=== PATIENT | male | born 1975 | race Caucasian/White ===

== ENCOUNTER 2017-04-02 21:59 | Emergency (ER) | payer OTHER ==
--- NOTE | 2017-04-02 22:39 | ED Physician Documentation ---
PD HPI ABD PAIN - Stated complaint Stated Complaint: LT SIDE PX - Chief complaint Chief Complaint: Back Pain - History obtained from History obtained from: Patient, Family - History of Present Illness Timing - onset: How many weeks ago (1) Timing - duration: Weeks (1) Timing - details: Gradual onset, Now resolved, Waxing and waning Quality: Sharp, Pain Location: LUQ Radiation: Left flank Improved by: Position Worsened by: Other (nothing) Associated symptoms: Constipation. No: Fever, Nausea, Vomiting Similar symptoms before: Has not had sx before Recently seen: Not recently seen - Additional information Additional information: Previously well 41-year-old male has been having an issue with some left flank pain over the past week. He is noted the pain to come and go at will without provocation. He states that this will last as long as 10 minutes and this evening he developed the pain, it was severe, he drove to the hospital with his , and the pain resolved after arrival to the emergency department. He has had this pain on and off for the past week. He is noted that he is also had a bit of bloating and gas as well as a hemorrhoid. He has not had any nausea or vomiting he has not had any diarrhea he has been able to eat and does not feel ill. He does not have any trauma to the area and he does not have any specific modifying factor that will elicit the pain. He does feel that he is sometimes able to shift his position when the pain comes on and he thinks that this does help. Review of Systems Constitutional: denies: Fever, Chills, Myalgias, Fatigue Ears: denies: Ear pain Nose: denies: Congestion Throat: denies: Sore throat Cardiac: denies: Chest pain / pressure, Palpitations Respiratory: denies: Dyspnea, Cough GI: reports: Abdominal Pain. denies: Nausea, Vomiting, Diarrhea : denies: Dysuria, Frequency Skin: denies: Rash Musculoskeletal: reports: Back pain. denies: Neck pain, Extremity pain Neurologic: denies: Generalized weakness, Focal weakness, Numbness PD PAST MEDICAL HISTORY - Past Medical History Past Medical History: No Cardiovascular: None Respiratory: None Neuro: None Endocrine/Autoimmune: None GI: None : None HEENT: None Psych: None Musculoskeletal: None Derm: None - Past Surgical History Past Surgical History: No - Present Medications Home Medications: Ambulatory Orders Medication Instructions Recorded Confirmed No Known Home Medications [No 04/02/17 04/02/17 Known Home Medications] - Allergies Allergies/Adverse Reactions: Allergies Allergy/AdvReac Type Severity Reaction Status Date / Time No Known Drug Allergies Allergy Verified 04/02/17 22:16 - Social History Does the pt smoke?: No Smoking Status: Never smoker Does the pt drink ETOH?: No Does the pt have substance abuse?: No PD ED PE NORMAL - Vitals Vital signs reviewed: Yes (hypertensive) - General General: Alert and oriented X 3, No acute distress, Well developed/nourished - HEENT HEENT: Atraumatic, PERRL, EOMI - Neck Neck: Supple, no meningeal sign - Respiratory Respiratory: No respiratory distress - Abdomen Abdomen: Soft, Non tender, No organomegaly - Back Back: No CVA TTP, No spinal TTP - Derm Derm: Normal color, Warm and dry, No rash - Extremities Extremities: No deformity, No edema - Neuro Neuro: No motor deficit, No sensory deficit Eye Opening: Spontaneous Motor: Obeys Commands Verbal: Oriented GCS Score: 15 - Psych Psych: Normal mood, Normal affect Results - Vitals Vitals: Vital Signs - 24 hr 04/02/17 22:14 Temperature 36.9 C Heart Rate 80 Respiratory 17 Rate Blood Pressure 144/90 H O2 Saturation 98 Oxygen O2 Source Room air - Labs Labs: Laboratory Tests 04/02/17 22:43 Urine Color YELLOW Urine Clarity HAZY Urine pH 6.0 Ur Specific [place] >=1.030 H Urine Protein NEGATIVE Urine Glucose (UA) NEGATIVE Urine Ketones NEGATIVE Urine Occult Blood SMALL H Urine Nitrite NEGATIVE Urine Bilirubin NEGATIVE Urine Urobilinogen 0.2 (NORMAL) Ur Leukocyte Esterase NEGATIVE Urine RBC 0-5 Urine WBC 0-3 Ur Squamous Epith Cells NONE SEEN Urine Bacteria None Seen Ur Microscopic Review INDICATED Urine Culture Comments NOT INDICATED - Rads (name of study) CT ab/pel without Radiology: Prelim report reviewed (Impression: No urinary tract stones or obstruction.), EMP read indepedently, See rad report PD MEDICAL DECISION MAKING - ED course Complexity details: reviewed old records, reviewed results, re-evaluated patient , considered differential, d/w patient, d/w family ED course: 41-year-old previously well male with 1 week of symptoms of intermittent left flank pain that was severe enough that he came to the emergency department this evening. He had an episode this evening that lasted much longer than he has during the rest of the week and is now completely resolved. On examination I am not able to find a tender area or get into a position we will repeat that will elicit symptoms and the only clue we have now is some occult blood in the urine. I suspect the patient has passed a stone. His CT examination today is without evidence of stone. His history is most consistent with passed kidney stone and I explained to the patient I felt that it was important to do the CT scan as he has had pain intermittently for the past week unpredictably. I am expecting he will have no pain now. He is concerned about the bloating and gas and I expect this to resolve as well. Departure - Departure Disposition: 01 Home, Self Care Clinical Impression: Right kidney stone Condition: Stable Instructions: ED Stone Renal Passed Follow-Up: [facility] [Provider Group] Comments: Today it appears you had a kidney stone that has passed. We do not expect you to have more pain. Today in the Emergency Department your blood pressure was elevated. This can happen from the stress of the visit itself, from a current illness or circumstance or from uncontrolled hypertension. If you take blood pressure medications take your usual mediations, have your blood pressure re-checked in an appropriate setting and follow up any elevation with your primary care doctor.
[2017-04-02 22:55] LABS: BILIRUBIN,URINE NEGATIVE (NEGATIVE)
[2017-04-02 22:58] LABS: UA w/ MICROSCOPIC CHARGE YES
[2017-04-02 23:11] LABS: UR CULTURE IF IND NOT INDICATED; WBC,URINE 0-3 /HPF (0-3)
--- NOTE | 2017-04-02 23:14 | CT Preliminary Report ---
Exam: CT ABDOMEN/PELVIS W/O IMPRESSION: No urinary tract stones or obstruction. [facility] SITE ID: [id number]
--- NOTE | 2017-04-02 23:16 | CT Report ---
EXAM: CT ABDOMEN AND PELVIS (CT KUB) EXAM DATE: 04/02/2017 10:56 PM. CLINICAL HISTORY: Left flank pain . COMPARISONS: None. TECHNIQUE: Routine axial helical CT imaging was performed through the abdomen and pelvis without IV c ontrast. Reconstructions: Coronal and sagittal. In accordance with CT protocol optimization, one or more of the following dose reduction techniques w ere utilized for this exam: automated exposure control, adjustment of mA and/or KV based on patient s ize, or use of iterative reconstructive technique. FINDINGS: Lung Bases: Unremarkable. Right Kidney/Ureter: No stones, hydronephrosis, or hydroureter. No perinephric fat stranding. Left Kidney/Ureter: No stones, hydronephrosis, or hydroureter. No perinephric fat stranding. Other Solid Organs: Noncontrast images of the solid organs are grossly unremarkable. Gallbladder/Bile Ducts: Unremarkable. Peritoneal Cavity: No free fluid, free air or cristian adenopathy. Bowel is grossly unremarkable. Pelvic Organs: No bladder stones or wall thickening. Noncontrast images of the visualized pelvic orga ns are unremarkable. Vasculature: Unremarkable. Other: None. IMPRESSION: No urinary tract stones or obstruction. [facility] Referring Provider Line: [phone] SITE ID: [id number]
[2017-04-02 23:45] VITALS: BP 110/72
== END 2017-04-02 23:45 | disposition home or self-care (01) ==
LOC: ED 21:59
DX: N20.0 Calculus of kidney (principal); R03.0 Elevated blood-pressure reading, without diagnosis of hypertension
CPT/HCPCS: 74176; 81001; 81003; 87086; 99283

== ENCOUNTER 2019-05-03 16:51 | Emergency (ER) | payer SELFPAY ==
[2019-05-03 17:10] VITALS: BP 103/65
--- NOTE | 2019-05-03 17:11 | ED Physician Documentation ---
History of Present Illness - Stated complaint Stated Complaint: RT HAND INJURY - Chief complaint Chief Complaint: Trauma Ext - Additonal information Additional information: This is a 43-year-old male who presents with right hand pain. He was fixing the roof on his home and he hit his hand on the edge of A ladder. He taken ibuprofen and was feeling better but today he banged it again on a table and started hurting worse. He denies any weakness numbness or tingling. He is pain located The ulnar aspect of his hand. He denies any pain in his forearm or proximal wrist. Review of Systems Skin: denies: Laceration (s) Musculoskeletal: reports: Extremity pain PD PAST MEDICAL HISTORY - Past Medical History Cardiovascular: None Respiratory: None Endocrine/Autoimmune: None GI: None : None HEENT: None Psych: None Musculoskeletal: None Derm: None - Past Surgical History Past Surgical History: No - Present Medications Home Medications: Ambulatory Orders Medication Instructions Recorded Confirmed Hydrocodone/Acetaminophen 1 each PO Q6H PRN #7 tablet 05/03/19 [Hydrocodon-Acetaminophen 5-325] - Allergies Allergies/Adverse Reactions: Allergies Allergy/AdvReac Type Severity Reaction Status Date / Time No Known Drug Allergies Allergy Verified 05/03/19 17:10 - Social History Does the pt smoke?: No Smoking Status: Never smoker Does the pt drink ETOH?: No Does the pt have substance abuse?: No PD ED PE NORMAL - Vitals Vital signs reviewed: Yes - HEENT HEENT: Atraumatic - Cardiac Cardiac: Strong equal pulses - Respiratory Respiratory: No respiratory distress - Extremities Extremities: Other (Right hand is edematous over the ulnar aspect and tender in the metacarpal region. Patient is able to flex and extend at the MCP PIP and DIP joints. Capillary refill is brisk, sensation intact light touch over the entire hand. No scaphoid tenderness) - Neuro Neuro: Alert and oriented X 3 Results - Vitals Vitals: Vital Signs - 24 hr 05/03/19 17:07 Temperature 36.0 C L Heart Rate 79 Respiratory 16 Rate Blood Pressure 103/65 O2 Saturation 100 Oxygen O2 Source Room air - Rads (name of study) Xr hand R Radiology: Other (There is a comminuted and mildly displaced fracture at the base of the fifth metacarpal.) PD MEDICAL DECISION MAKING - ED course ED course: Patient presents with right hand pain after trauma. He is right-hand dominant. X-ray reveals a slightly displaced/angulated fifth metacarpal fracture. I discussed this diagnosis with him and he was placed in ulnar gutter splint in intrinsic plus position. This was gently molded into proper position. I discussed with him that he needs to follow-up for repeat x-rays either with his primary care provider or with an orthopedist in the next 1 to 2 weeks. I discussed return precautions, prescribed patient with a small amount of pain medication if [id number] meds are not adequate for controlling his pain, and he was discharged home. Departure - Departure Disposition: Home, Self Care Clinical Impression: Closed fracture of 5th metacarpal Condition: Good Instructions: ED Fx Hand Closed Follow-Up: Juan Francisco Shaikh MD [Provider Admit Priv/Credential] - (In 1-2 weeks for follow up) Prescriptions: Hydrocodone/Acetaminophen [Hydrocodon-Acetaminophen 5-325] 1 each PO Q6H PRN #7 tablet PRN Reason: pain Comments: You fractured the base of your fifth metacarpal in your hand. We have put you in a splint, please follow-up with your primary care provider or Dr. Shaikh in t he next several weeks to check on how it is healing. Avoid bearing weight with your hand or causing any further trauma to it. If you developing significantly increasing pain or other concerning symptoms return to the emergency department. Do not drink alcohol or drive while taking narcotic pain medication. Note that many narcotic pain relievers also contain Tylenol/acetaminophen. Please ensure that your total dose of acetaminophen from all sources does not exceed 3 g (3000 mg) per day. You may get constipated while on this medication. Take a stool softener such as Colace twice a day while you are on it. Also add an vczv-lhp-[id number] laxative such as senna or MiraLAX on any day that you do not have a bowel movement. If you received a narcotic pain medication or sedative while in the emergency department, do not drive for the next 24 hours. Discharge Date/Time: 05/03/19 18:21
--- NOTE | 2019-05-03 18:03 | XRAY Report ---
Reason: trauma. pain and swelling Procedure Date: 05/03/2019 Accession Number: [id number] / [id number] Procedure: XR - Hand 3 View RT CPT Code: Final Report FULL RESULT: EXAM: RIGHT HAND RADIOGRAPHY EXAM DATE: 05/03/2019 05:29 PM. CLINICAL HISTORY: Trauma. pain and swelling. Fell off ladder yesterday. COMPARISON: XR HAND MIN 3 VIEWS 08/12/2011 9:05 PM. TECHNIQUE: 3 views. FINDINGS: Bones: Acute comminuted fracture at the proximal metadiaphysis of the fifth metacarpal with mild dorsal displacement. Adjacent soft tissue swelling. Joints: No subluxation. IMPRESSION: Acute comminuted fracture at the proximal metadiaphysis of the fifth metacarpal with mild dorsal displacement. Adjacent soft tissue swelling. [facility]
== END 2019-05-03 18:21 | disposition home or self-care (01) ==
LOC: ED 16:51
DX: S62.316A Displaced fracture of base of fifth metacarpal bone, right hand, initial encounter for closed fracture (principal); W22.8XXA Striking against or struck by other objects, initial encounter; Y93.89 Activity, other specified; Y92.008 Other place in unspecified non-institutional (private) residence as the place of occurrence of the external cause
CPT/HCPCS: 99283; 99284

== ENCOUNTER 2019-05-06 10:59 | Emergency (ER) | payer SELFPAY ==
[2019-05-06 11:16] VITALS: BP 122/73
--- NOTE | 2019-05-06 11:28 | ED Physician Documentation ---
History of Present Illness - Stated complaint Stated Complaint: RT HAND PX - Chief complaint Chief Complaint: Ext Problem - Additonal information Additional information: This is a 43-year-old male who I saw her recently who suffered a fracture of his fifth metacarpal. He initially hit his hand on a ladder, and then hit it on a table. He was splinted with an ulnar gutter and was prescribed Percocet, has been taking ibuprofen but states ibuprofen is not been 100% effective in controlling his pain but he has not yet filled his oxycodone. Presents today because he is having increased pain more down at his distal ulna, which was not where he is having more pain when he first came in. He also has a bit of soreness in his right trapezius. He denies any weakness or numbness, no elbow pain. Review of Systems Constitutional: denies: Fever Cardiac: denies: Chest pain / pressure GI: denies: Abdominal Pain Musculoskeletal: reports: Extremity pain PD PAST MEDICAL HISTORY - Past Medical History Cardiovascular: None Respiratory: None Endocrine/Autoimmune: None GI: None : None HEENT: None Psych: None Musculoskeletal: None Derm: None - Past Surgical History Past Surgical History: No - Present Medications Home Medications: Ambulatory Orders Medication Instructions Recorded Confirmed Hydrocodone/Acetaminophen 1 each PO Q6H PRN #7 tablet 05/03/19 [Hydrocodon-Acetaminophen 5-325] - Allergies Allergies/Adverse Reactions: Allergies Allergy/AdvReac Type Severity Reaction Status Date / Time No Known Drug Allergies Allergy Verified 05/03/19 17:10 - Social History Does the pt smoke?: No Smoking Status: Never smoker Does the pt drink ETOH?: No Does the pt have substance abuse?: No - Immunizations Immunizations are current?: No - POLST Patient has POLST: No PD ED PE NORMAL - General General: Alert and oriented X 3 - HEENT HEENT: Atraumatic - Cardiac Cardiac: RRR - Respiratory Respiratory: No respiratory distress - Extremities Extremities: Other (Patient has swelling of his right hand, which is stable from his previous exam. He has some tenderness over the distal ulna, no proximal or mid forearm tenderness, elbow is nontender with full range of motion shoulder is nontender with full range of motion. He has some mild soreness in his trapezius which is reproduced when I press in on the trapezius, but no pain in his clavicle or his neck. Sensation intact light touch over the entire extremity, patient is able to flex and extend all his fingers) Results - Vitals Vitals: Vital Signs - 24 hr 05/06/19 11:12 Temperature 36 C L Heart Rate 87 Respiratory 18 Rate Blood Pressure 122/73 O2 Saturation 97 Oxygen O2 Source Room air - Rads (name of study) XR wrist Radiology: Other (Stable fifth metacarpal fracture, no new osseous abnormalities identified.) PD MEDICAL DECISION MAKING - ED course ED course: Patient presents with some wrist pain in the setting of a known fifth metacarpal fracture. He has not had any new any trauma to the hand. Examining the location of his discomfort I think his ulnar distal prominence was irritated a bit by the splint that was applied. An x-ray of his wrist does not show any new osseous abnormalities, the fifth metacarpal fracture appears stable. We applied a new splint and a give a gentle mold into intrinsic plus position to hopefully improve the alignment of the fifth metacarpal slightly. I discussed follow-up with orthopedics, and also trying the pain medication which was prescribed to him last time but which he has not filled. He also has a mild soreness in his right trapezius, which is likely from his fall as well but he has excellent range of motion of his shoulder and no other bony pain in his neck or shoulder back to suggest significant trauma or more serious cause. I discussed return precautions and patient agrees and was discharged home Departure - Departure Disposition: 01 Home, Self Care Clinical Impression: Fracture, metacarpal Qualifiers: Encounter type: initial encounter Metacarpal bone: fifth Fracture type: closed Metacarpal location: base Fracture alignment: displaced Laterality: right Qualified Code(s): S62.316A - Displaced fracture of base of fifth metacarpal bone, right hand, initial encounter for closed fracture Condition: Good Follow-Up: Juan Francisco Shaikh MD [Provider Admit Priv/Credential] - Comments: The fracture in your hand appears stable. We have applied a new splint with some more padding which will hopefully help with the pain you have in your wrist, we do not see signs of a wrist fracture today. Try the pain medication which was prescribed to you. If you are having worsening symptoms return to the emergency department. Make an appointment with an orthopedist as we discussed.
--- NOTE | 2019-05-06 12:23 | XRAY Report ---
Reason: Wrist pain after impact Procedure Date: 05/06/2019 Accession Number: [id number] / [id number] Procedure: XR - Wrist 3 View RT CPT Code: Final Report FULL RESULT: EXAM: RIGHT WRIST RADIOGRAPHY EXAM DATE: 05/06/2019 11:42 AM. CLINICAL HISTORY: Wrist pain after impact. Known fracture COMPARISON: HAND 3 VIEW RT 05/03/2019 5:05 PM. TECHNIQUE: 3 views. FINDINGS: Detail obscured by splint material. Bones: Stable alignment comminuted proximal fifth metacarpal metadiaphyseal fracture. Joints: No subluxations. Soft Tissues: Obscured by splint material IMPRESSION: Stable right fifth metacarpal fracture compared with 05/03/2019. No significant new findings. [facility]
== END 2019-05-06 12:56 | disposition home or self-care (01) ==
LOC: ED 10:59
DX: S62.316A Displaced fracture of base of fifth metacarpal bone, right hand, initial encounter for closed fracture (principal); M25.511 Pain in right shoulder; W19.XXXA Unspecified fall, initial encounter; W22.8XXA Striking against or struck by other objects, initial encounter
CPT/HCPCS: 99283; 99284

== ENCOUNTER 2021-12-30 15:31 | Emergency (ER) | payer SELFPAY ==
[2021-12-30 15:38] VITALS: BP 152/85
[2021-12-30] MEDS ORDERED: PROPARACAINE 0.5% OPHTH DROPS 15 ML RIGHTEYE STA (15:50)
--- NOTE | 2021-12-30 16:20 | ED Physician Documentation ---
PD HPI OPHTHO - Stated complaint Stated Complaint: EYE IRRITATION - Chief complaint Chief Complaint: Heent - History obtained from History obtained from: Patient - History of Present Illness Timing - onset: Today Timing - duration: Hours Timing - details: Gradual onset, Still present Location: Right Quality / character: Itching, Throbbing, Sharp Associated symptoms: Redness, Tearing, FB sensation Contributing factors: Wears glasses (for reading only). No: Recent URI, FB, UV light (welding etc) Similar symptoms before: Has not had sx before Recently seen: Not recently seen - Additional information Additional information: Previously well 46-year-old Brian Salazar awoke this morning with some irritation to his right eye. This has progressed throughout the day and is now very irritating. It hurts every time he blinks feels like there is something in his eye. He does acknowledge that he has had cold sores previously, but he does not currently have one. He has not had this happen to him previously. He does not feel ill otherwise. He denies possibility of FB and does not wear contact lenses. Review of Systems Constitutional: denies: Fever Eyes: reports: Irritation. denies: Decreased vision Ears: denies: Ear pain Nose: denies: Congestion Throat: denies: Sore throat Respiratory: denies: Cough GI: denies: Vomiting, Diarrhea PD PAST MEDICAL HISTORY - Past Medical History Cardiovascular: None Respiratory: None Endocrine/Autoimmune: None GI: None : None HEENT: None Psych: None Musculoskeletal: None Derm: None - Past Surgical History Past Surgical History: No - Present Medications Home Medications: Ambulatory Orders Medication Instructions Recorded Confirmed Hydrocodone/Acetaminophen 1 each PO Q6H PRN #7 tablet 05/03/19 [Hydrocodon-Acetaminophen 5-325] valACYclovir [Valtrex] 1,000 mg PO TID #21 tablet 12/30/21 - Allergies Allergies/Adverse Reactions: Allergies Allergy/AdvReac Type Severity Reaction Status Date / Time No Known Drug Allergies Allergy Verified 12/30/21 15:36 - Social History Does the pt smoke?: No Smoking Status: Never smoker Does the pt drink ETOH?: No Does the pt have substance abuse?: No - Immunizations Immunizations are current?: No - POLST Patient has POLST: No PD ED PE NORMAL - Vitals Vital signs reviewed: Yes (hypertensive ) - General General: Alert and oriented X 3, No acute distress, Well developed/nourished - HEENT HEENT: Atraumatic, PERRL, EOMI, Other (Examination of the right eye shows a normal and symmetric pupil. There is fluorosceine uptake on the lateral aspect of the cornea there does appear to be ulceration as well as dendritic spiculation.) - Respiratory Respiratory: No respiratory distress - Derm Derm: Normal color, Warm and dry, No rash - Extremities Extremities: No deformity, No edema - Neuro Neuro: Alert and oriented X 3, dolly driver 2-12 intact, No motor deficit, No sensory deficit, Normal speech Eye Opening: Spontaneous Motor: Obeys Commands Verbal: Oriented GCS Score: 15 - Psych Psych: Normal mood, Normal affect Results - Vitals Vitals: Vital Signs - 24 hr 12/30/21 15:36 Temperature 36.5 C Heart Rate 74 Respiratory 16 Rate Blood Pressure 152/85 H O2 Saturation 98 Oxygen O2 Source Room air PD MEDICAL DECISION MAKING - ED course Complexity details: reviewed old records, considered differential, d/w patient ED course: 46-year-old male with what appears to be herpes keratitis in the right eye. We will place him on some valacyclovir. I found the ulceration to be deep enough to be concerned for a follow-up visit and asked the patient to follow-up with Dr. Barajas tomorrow. 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 There is an ulceration to this and I would like you to follow-up wi th the eye doctor tomorrow for a reexamination. Call Dr. Barajas's clinic for an appointment. An antiviral medication valacyclovir has been E scribed to [facility] in [place]. Obtain this and take it as soon as possible. Discharge Date/Time: 12/30/21 16:32
== END 2021-12-30 16:32 | disposition home or self-care (01) ==
LOC: ED 15:31
DX: B00.52 Herpesviral keratitis (principal)
CPT/HCPCS: 99282; J3490

== ENCOUNTER 2022-09-25 22:47 | Emergency (ER) | payer SELFPAY ==
[2022-09-25 23:00] VITALS: BP 131/82
--- NOTE | 2022-09-25 23:36 | ED Physician Documentation ---
PD HPI UPPER EXT INJURY - Stated complaint Stated Complaint: R HAND PX - Chief complaint Chief Complaint: Trauma Ext - History obtained from History obtained from: Patient - Additonal information Additional information: The patient comes to the emergency department chief complaint of right hand pain around the fifth MCP joint after dropping a cement block on his hand at work. He denies any loss of range of motion. He states that he is mainly here because last time he broke a bone in his hand, he did not have any pain and he found out in a delayed fashion that he had a fracture and "almost had to have surgery". Patient denies any other injuries. No numbness or tingling in his fingers. He states his pain is fairly minimal at this point. PD PAST MEDICAL HISTORY - Past Medical History Cardiovascular: None Respiratory: None Endocrine/Autoimmune: None GI: None : None HEENT: None Psych: None Musculoskeletal: None Derm: None - Past Surgical History Past Surgical History: No - Present Medications Home Medications: Ambulatory Orders Medication Instructions Recorded Confirmed Hydrocodone/Acetaminophen 1 each PO Q6H PRN #7 tablet 05/03/19 [Hydrocodon-Acetaminophen 5-325] valACYclovir [Valtrex] 1,000 mg PO TID #21 tablet 12/30/21 - Allergies Allergies/Adverse Reactions: Allergies Allergy/AdvReac Type Severity Reaction Status Date / Time No Known Drug Allergies Allergy Verified 09/25/22 22:59 - Social History Does the pt smoke?: No Smoking Status: Never smoker Does the pt drink ETOH?: No Does the pt have substance abuse?: No - Immunizations Immunizations are current?: No - POLST Patient has POLST: No PD ED PE NORMAL - Vitals Vital signs reviewed: Yes - General General: No acute distress, Well developed/nourished, Other (Alert and grossly oriented.) - HEENT HEENT: Atraumatic, PERRL, EOMI, Moist mucous membranes - Neck Neck: Supple, no meningeal sign - Cardiac Cardiac: Strong equal pulses - Respiratory Respiratory: No respiratory distress - Derm Derm: Normal color, Warm and dry, No rash - Extremities Extremities: No deformity, No edema, Other (The patient reports pain with movement of his right small finger at the MCP joint but is able to move through full range of motion.) - Neuro Neuro: Alert and oriented X 3, No motor deficit, No sensory deficit - Psych Psych: Normal mood, Normal affect Results - Vitals Vitals: Vital Signs - 24 hr 09/25/22 22:55 Temperature 36.5 C Heart Rate 84 Respiratory 17 Rate Blood Pressure 131/82 H O2 Saturation 97 Oxygen O2 Source Room air - Rads (name of study) Right hand x-ray series Relevant Findings:: Final report received, See rad report (Negative) PD Medical Decision Making - ED course Complexity details: reviewed results, re-evaluated patient, considered differential, d/w patient ED course: The patient was worked up with an x-ray series of his right hand which was found to be negative. Inform the patient of his results. We have discussed home management of symptoms, as well as the usual indications for return. Departure - Departure Disposition: 01 Home, Self Care Clinical Impression: Crushing injury Condition: Stable Instructions: ED Crush Injury Finger No Fx Comments: Your x-rays look good tonight. You do not have any broken bones in your hand or finger. You may use ice and ibuprofen to help with any discomfort or swelling you may have. When your hand feels well enough, you may go back to work and use it as usual. Discharge Date/Time: 09/25/22 23:40
--- NOTE | 2022-09-25 23:37 | XRAY Report ---
PROCEDURE: Hand 3 View RT INDICATIONS: R small finger crush inj TECHNIQUE: 3 views of the hand acquired. COMPARISON: Right hand radiographs 05/03/2019. FINDINGS: Bones: No acute fractures or dislocations. Chronic healed fracture deformity of the base of the fif th metacarpal. No suspicious bony lesions. Mild background osteoarthrosis. Soft tissues: No suspicious soft tissue calcifications or masses. IMPRESSION: No acute osseous abnormality. If there is clinical concern or persistent symptoms, additional imaging such as repeat radiographs or advanced imaging (e.g. CT, MRI) may be helpful for further evaluation. Reviewed by: Brian Alfonso MD on 09/25/2022 11:36 PM PDT Approved by: Brian Alfonso MD on 09/25/2022 11:36 PM PDT Station ID: [id number]
== END 2022-09-25 23:40 | disposition home or self-care (01) ==
LOC: ED 22:47
DX: S67.21XA Crushing injury of right hand, initial encounter (principal); W20.8XXA Other cause of strike by thrown, projected or falling object, initial encounter; Y92.89 Other specified places as the place of occurrence of the external cause; Y99.0 Civilian activity done for income or pay
CPT/HCPCS: 99283

== ENCOUNTER 2022-10-02 19:47 | Emergency (ER) | payer SELFPAY ==
[2022-10-02 19:53] VITALS: BP 137/80
--- NOTE | 2022-10-02 20:23 | ED Physician Documentation ---
History of Present Illness - Stated complaint Stated Complaint: R TOE INJ - Chief complaint Chief Complaint: Trauma Ext - Additonal information Additional information: 47-year-old male presents emergency department for evaluation of a right middle toe injury sustained when a heavy concrete block was accidentally dropped on his work boots which were not steel toed. He was able to finish out the day but as has gone on he has found increasing pain and reports a burning sensation in the toe. No open sores or lesions. No history of previous injury. Review of Systems Constitutional: reports: Reviewed and negative Musculoskeletal: reports: Extremity pain PD PAST MEDICAL HISTORY - Past Medical History Cardiovascular: None Respiratory: None Endocrine/Autoimmune: None GI: None : None HEENT: None Psych: None Musculoskeletal: None Derm: None - Past Surgical History Past Surgical History: No - Present Medications Home Medications: Ambulatory Orders Medication Instructions Recorded Confirmed No Known Home Medications 10/02/22 10/02/22 - Allergies Allergies/Adverse Reactions: Allergies Allergy/AdvReac Type Severity Reaction Status Date / Time No Known Drug Allergies Allergy Verified 10/02/22 19:49 - Social History Does the pt smoke?: No Smoking Status: Never smoker Does the pt drink ETOH?: No Does the pt have substance abuse?: No - Immunizations Immunizations are current?: No - POLST Patient has POLST: No PD ED PE EXPANDED - Extremities Extremities: Right toe(s) (Right middle toe is mildly swollen and ecchymotic. Most of the tenderness was elicited with palpation of the mid phalanx. Appears neurovascular intact without deformity. Brisk cap refill.) Results - Vitals Vitals: Vital Signs - 24 hr 10/02/22 19:50 Temperature 36.5 C Heart Rate 66 Respiratory 16 Rate Blood Pressure 137/80 H O2 Saturation 99 Oxygen O2 Source Room air - Rads (name of study) Right foot xr Relevant Findings:: EMP independent interpretation of test (Nondisplaced middle phalanx fracture) PD Medical Decision Making - ED course Complexity details: reviewed results, d/w patient ED course: 47-year-old male presents emergency department for evaluation of acute right middle toe pain sustained when a heavy concrete block was accidentally dropped on his work boot. On exam most of the tenderness was elicited with palpation of the mid phalanx where the ecchymosis is most consistent. An x-ray is interpreted by myself shows a nondisplaced mid phalanx fracture. Discussed routine conservative care with the patient to include Motrin, Tylenol over-the- counter as well as charles taping. The usual emergent return precautions were discussed. Departure - Departure Disposition: 01 Home, Self Care Clinical Impression: Toe fracture, right Qualifiers: Encounter type: initial encounter Toe: lesser toe Fracture type: closed Phalanx: middle Fracture alignment: nondisplaced Qualified Code(s): S92.524A - Nondisplaced fracture of middle phalanx of right lesser toe(s), initial encounter for closed fracture Condition: Stable Record reviewed to determine appropriate education?: Yes Instructions: ED Fx Toe Closed Comments: Brian the x-ray of your toe shows the middle phalanx was broken. This type of fracture rarely requires any type of orthopedic intervention. I do recommend that you charles tape your toe to the adjacent toe. Ibuprofen and Tylenol [id number] will be helpful to control pain. In general I would expect pain to be getting better after several weeks but like any broken bone it typically takes 4 to 6 weeks to heal. Return to the ER with any other emergent concerns
--- NOTE | 2022-10-02 21:13 | XRAY Report ---
PROCEDURE: Foot 3 View RT INDICATIONS: toe injury after dropping block on it TECHNIQUE: 3 views of the foot were acquired. COMPARISON: None. FINDINGS: Bones: No definite fractures or dislocations. There is osteoarthritic changes of the interphalangea l joints including moderate degeneration of the third distal interphalangeal joint. No suspicious bon y lesions. Soft tissues: No suspicious soft tissue calcifications or masses. IMPRESSION: 1. No definite fracture or dislocation. Reviewed by: Yinka Jameson MD on 10/02/2022 9:12 PM PDT Approved by: Yinka Jameson MD on 10/02/2022 9:12 PM PDT Station ID: [id number]
== END 2022-10-02 20:41 | disposition home or self-care (01) ==
LOC: ED 19:47
DX: S92.524A Nondisplaced fracture of middle phalanx of right lesser toe(s), initial encounter for closed fracture (principal); W20.8XXA Other cause of strike by thrown, projected or falling object, initial encounter; Y99.0 Civilian activity done for income or pay
CPT/HCPCS: 99283

== ENCOUNTER 2022-10-13 19:02 | Emergency (ER) | payer SELFPAY ==
[2022-10-13 19:25] VITALS: BP 134/82
--- NOTE | 2022-10-13 19:41 | ED Physician Documentation ---
PD HPI HEENT - Stated complaint Stated Complaint: LT FACE PX - Chief complaint Chief Complaint: Heent - History obtained from History obtained from: Patient - Additional information Additional information: He had the lower wisdom teeth removed 9 days ago. He feels like the right side is healing fine, but over the last few days has had increasing pain from the left jaw. No fevers. PD PAST MEDICAL HISTORY - Past Medical History Past Medical History: No Cardiovascular: None Respiratory: None Neuro: None Endocrine/Autoimmune: None GI: None : None HEENT: None Psych: None Musculoskeletal: None Derm: None - Past Surgical History Past Surgical History: No - Present Medications Home Medications: Ambulatory Orders Medication Instructions Recorded Confirmed Amox/Clav 875/125 [Augmentin] 1 each PO Q12H #20 tablet 10/13/22 Oxycodone HCl/Acetaminophen 1 - 2 each PO Q6H PRN #14 tablet 10/13/22 [Percocet 5-325 mg Tablet] - Allergies Allergies/Adverse Reactions: Allergies Allergy/AdvReac Type Severity Reaction Status Date / Time No Known Drug Allergies Allergy Verified 10/13/22 19:21 - Social History Does the pt smoke?: No Smoking Status: Never smoker Does the pt drink ETOH?: No Does the pt have substance abuse?: No - Immunizations Immunizations are current?: No - POLST Patient has POLST: No PD ED PE NORMAL - Vitals Vital signs reviewed: Yes - General General: Alert and oriented X 3, No acute distress - HEENT HEENT: Other (I do not see an obvious infection in the left jaw socket site. But he is tender there with mild facial swelling overlying it. No trismus.) - Neuro Neuro: Alert and oriented X 3 - Psych Psych: Normal mood, Normal affect Results - Vitals Vitals: Vital Signs - 24 hr 10/13/22 19:14 Temperature 36.3 C L Heart Rate 65 Respiratory 18 Rate Blood Pressure 134/82 H O2 Saturation 99 Oxygen O2 Source Room air PD Medical Decision Making - ED course ED course: Presumptive mild surgical site infection, will start Augmentin and he needs some pain control. Departure - Departure Disposition: 01 Home, Self Care Clinical Impression: Pain, dental Condition: Good Record reviewed to determine appropriate education?: Yes Instructions: ED Tooth Pain Prescriptions: Amox/Clav 875/125 [Augmentin] 1 each PO Q12H #20 tablet Oxycodone HCl/Acetaminophen [Percocet 5-325 mg Tablet] 1 - 2 each PO Q6H PRN #14 tablet PRN Reason: pain Comments: I sent your prescription electronically to [facility] in [place]. Follow-up with the oral surgeon either tomorrow or early next week calling his office tomorrow for an appointment. Return if worse. I am prescribing a short course of narcotic pain medication for you. These are potentially dangerous and addictive medications that should be used carefully. These medications may constipate you. Take an aufc-zkx-vusypat stool softener (docusate) twice daily with plenty of water while taking these medications. If you go 24 hours without a bowel movement, take gcwq-crw-dxistkx miralax, per package instructions. Do not drink or drive while taking these medications. If you received narcotic or sedating medications while in the emergency department, do not drive for 24 hours. Store this medication in a safe, secure place and out of reach of children. It is a violation of federal law to give or sell this medication to another person or to use in a manner other than prescribed. The ED will not refill narcotic prescriptions, including prescriptions lost or stolen. To dispose of unwanted medications: 1. [facility] provides a drop box for medication in pill form only (no liquids) 8:00 am to 4:30 p.m. Monday-Monday in the lobby of the [facility], [address] [place] [address]. Empty pills into ziplock bag before disposal. Call [phone] for information. 2.[employer] is a free service available to all [facility] residents. Go to [email or web address] Note that many narcotic pain relievers also contain Tylenol/acetaminophen. Please ensure that your total dose of acetaminophen from all sources does not exceed 3 g (3000 mg) per day.
== END 2022-10-13 19:49 | disposition home or self-care (01) ==
LOC: ED 19:02
DX: K08.89 Other specified disorders of teeth and supporting structures (principal)
CPT/HCPCS: 99281; 99283

== ENCOUNTER 2022-11-05 16:13 | Emergency (ER) | payer SELFPAY ==
[2022-11-05 16:22] VITALS: BP 140/89
--- NOTE | 2022-11-05 16:41 | ED Physician Documentation ---
PD HPI UPPER EXT INJURY - Stated complaint Stated Complaint: LAC LT FINGER - Chief complaint Chief Complaint: Ext Problem - History obtained from History obtained from: Patient - History of Present Illness Location: Left, Finger (ring) Type of injury: Crush (in a car door) Where injury occurred: Street Timing - onset: How many weeks ago (1) Timing - duration: Weeks (1) Timing - details: Abrupt onset, Still present Improved by: Rest, Immobilization, Dressing Worsened by: Moving, Palpating Associated symptoms: No: Weakness, Numbness, Tingling, Swelling, Discolored Contributing factors: No: Anticoagulated Similar symptoms before: Has not had sx before Recently seen: Not recently seen - Additonal information Additional information: 47-year-old Sukh Duncan is injured his left ring finger when it got slammed in a car door 1 week ago. He had a flap laceration to the radial aspect of the ring finger on the left hand. He was able to hold the flap in place with direct pressure and he has been wearing a Band-Aid. He has come to the emergency department today because he was playing with his children today when he banged the side of his finger and had severe pain in a specific area. He is taken some ibuprofen and this did not get rid of the pain. He does not have pain if he is not directly palpating the area. Review of Systems Constitutional: denies: Fever Nose: denies: Congestion Respiratory: denies: Cough GI: denies: Nausea, Vomiting Skin: reports: Laceration (s) Musculoskeletal: reports: Extremity pain PD PAST MEDICAL HISTORY - Past Medical History Cardiovascular: None Respiratory: None Neuro: None Endocrine/Autoimmune: None GI: None : None HEENT: None Psych: None Musculoskeletal: None Derm: None - Past Surgical History Past Surgical History: No - Allergies Allergies/Adverse Reactions: Allergies Allergy/AdvReac Type Severity Reaction Status Date / Time No Known Drug Allergies Allergy Verified 10/13/22 19:21 - Social History Does the pt smoke?: No Smoking Status: Never smoker Does the pt drink ETOH?: No Does the pt have substance abuse?: No - Immunizations Immunizations are current?: No - POLST Patient has POLST: No PD ED PE NORMAL - Vitals Vital signs reviewed: Yes (hypertensive ) - General General: Alert and oriented X 3, No acute distress, Well developed/nourished - HEENT HEENT: Atraumatic, PERRL, EOMI - Respiratory Respiratory: No respiratory distress - Derm Derm: Normal color, Warm and dry, No rash - Extremities Extremities: No deformity, Other (There is a flap laceration that appears well tacked down on the radial surface of the left ring finger distally. The area is acutely tender without swelling or drainage or erythema. ) - Neuro Neuro: Alert and oriented X 3, biological photographer 2-12 intact, No motor deficit, No sensory deficit, Normal speech Eye Opening: Spontaneous Motor: Obeys Commands Verbal: Oriented GCS Score: 15 - Psych Psych: Normal mood, Normal affect Results - Vitals Vitals: Vital Signs - 24 hr 11/05/22 16:14 Temperature 36.4 C L Heart Rate 74 Respiratory 20 Rate Blood Pressure 140/89 H O2 Saturation 100 Oxygen O2 Source Room air - Rads (name of study) finger L Relevant Findings:: Prelim report reviewed (Impression: No acute bony abnormality.), EMP independent interpretation of test PD Medical Decision Making - ED course Complexity details: reviewed old records, reviewed results, re-evaluated patient, considered differential, d/w patient ED course: Sukh Salazar has had a crush injury to his left ring finger a week ago he has a sizable flap laceration that appears to have healed. He has bumped the area today causing severe pain. He does not have pain if he does not touch the area right now. We will put a finger protector on the tip of his finger. There is no evidence of a fracture. Departure - Departure Disposition: 01 Home, Self Care Clinical Impression: Crushing injury Condition: Stable Instructions: ED Crush Injury Finger No Fx Follow-Up: [facility] [Provider Group] Comments: Sukh, today looks like you have contused your finger right where a flap laceration is healing. This may hurt for several hours and the expectation is it will improve over the day. We have placed a cage over the finger to prevent further injury to the area. Our expectation is that you have resolution of your symptoms and healing of the area within the next week.
--- NOTE | 2022-11-05 17:02 | XRAY Report ---
PROCEDURE: Finger(s) LT INDICATIONS: ring finger distal crush TECHNIQUE: AP hand, 2 views of the ring finger(s) acquired. COMPARISON: None. FINDINGS: Bones: No fractures or dislocations. No suspicious bony lesions. Soft tissues: No suspicious soft tissue calcifications or masses. IMPRESSION: No acute bony abnormality. Reviewed by: Huber Law on 11/05/2022 4:00 PM PATRICIA Approved by: Huber Law on 11/05/2022 4:00 PM PATRICIA Station ID: [id number]
== END 2022-11-05 17:09 | disposition home or self-care (01) ==
LOC: ED 16:13
DX: S67.195A Crushing injury of left ring finger, initial encounter (principal); W22.8XXA Striking against or struck by other objects, initial encounter; Y93.89 Activity, other specified; S61.215D Laceration without foreign body of left ring finger without damage to nail, subsequent encounter; W23.2XXD Caught, crushed, jammed or pinched between a moving and stationary object, subsequent encounter
CPT/HCPCS: 99283

== ENCOUNTER 2023-02-15 16:30 | Emergency (ER) | payer OTHER ==
[2023-02-15 16:42] VITALS: BP 151/89; O2SAT 97
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
== END 2023-02-15 18:48 | disposition home or self-care (01) ==
LOC: ED 16:30
DX: S39.012A Strain of muscle, fascia and tendon of lower back, initial encounter (principal); V49.40XA Driver injured in collision with unspecified motor vehicles in traffic accident, initial encounter
CPT/HCPCS: 99281; 99283